=== PATIENT | female | born 1980 | race Caucasian/White ===

== ENCOUNTER 2016-06-15 20:04 | Emergency (ER) | payer OTHER ==
--- NOTE | 2016-06-15 20:18 | PDOC ---
[phone] my direct supervision Ancillary studies reviewed I agree with plan as outlined by the Advanced Practice Provider DASH Rush *DC/Admit/Observation/Transfer Diagnosis at time of Disposition: Remove/insert IUD - Discharge Dispostion Disposition: HOME Condition at time of disposition: Improved - Referrals Referrals: Cherie Levine MD [Staff Physician] - - Patient Instructions Printed Discharge Instructions: DI for Intrauterine Device Removal Additional Instructions: Follow up with your charging manipulator or the listed on your discharge. Return to the ER for any concerns
[2016-06-15 20:20] VITALS: BP 124/78; PULSE 81; TEMP 97.5; BMI 27.3
--- NOTE | 2016-06-15 20:29 | PDOC ---
History of Present Illness - General Chief Complaint: Foreign Body (FB) Stated Complaint: IUD PROBLEM Time Seen by Provider: 06/15/16 20:09 History Source: Patient Exam Limitations: No Limitations - History of Present Illness Timing/Duration: 24 hours Past History - Travel Traveled outside of the country in the last 30 days: No Close contact w/someone who was outside of country & ill: No - Past Medical History Allergies/Adverse Reactions: Allergies Allergy/AdvReac Type Severity Reaction Status Date / Time No Known Allergies Allergy Verified 06/15/16 20:18 Home Medications: Ambulatory Orders Magnesium 400 mg PO ASDIR 06/15/16 Other medical history: migraines - Reproductive History (#): 1 Para: 0 - Psycho/Social/Smoking Cessation Hx Anxiety: No Suicidal Ideation: No Smoking Status: No Smoking History: Never smoked Number of Cigarettes Smoked Daily: 0 Hx Alcohol Use: No Substance Use Type: None Review of Systems - Review of Systems Able to Perform ROS?: Yes Comments:: 06/15/16 20:29 CONSTITUTIONAL: Absent: fever, chills, diaphoresis, generalized weakness, malaise, loss of appetite HEENT: Absent: rhinorrhea, nasal congestion, throat pain, throat swelling, difficulty swallowing, mouth swelling, ear pain, eye pain, visual Changes CARDIOVASCULAR: Absent: chest pain, loss of consciousness, palpitations, irregular heart rate, peripheral edema RESPIRATORY: Absent: cough, shortness of breath, dyspnea with exertion, orthopnea, wheezing, stridor, hemoptysis GASTROINTESTINAL: Absent: abdominal pain, abdominal distension, nausea, vomiting, diarrhea, constipation, melena, hematochezia GENITOURINARY: Absent: dysuria, frequency, urgency, hesitancy, hematuria, flank pain, genital pain MUSCULOSKELETAL: Absent: myalgia, arthralgia, joint swelling SKIN: Absent: rash, itching, pallor HEMATOLOGIC/IMMUNOLOGIC: Absent: easy bleeding, easy bruising, lymphadenopathy, frequent infections ENDOCRINE: Absent: unexplained weight gain, unexplained weight loss, heat intolerance, cold intolerance NEUROLOGIC: Absent: headache, focal weakness or paresthesias, dizziness, unsteady gait, seizure, mental status changes, bladder or bowel incontinence PSYCHIATRIC: Absent: anxiety, depression, suicidal or homicidal ideation, hallucinations. Is the patient limited Croatian proficient: No *Physical Exam - Vital Signs Last Vital Signs Temp Pulse Resp BP Pulse Ox 97.5 F L 81 18 124/78 100 06/15/16 20:16 06/15/16 20:16 06/15/16 20:16 06/15/16 20:16 06/15/16 20:16 - Physical Exam Comments: 06/15/16 20:29 GENERAL: Well developed, well nourished. Awake and alert. No acute distress. HEENT: Normocephalic, atraumatic. PERRLA, EOMI. No conjunctival pallor. Sclera are non- icteric. Moist mucous membranes. Oropharynx is clear. NECK: Supple. Full ROM. No JVD. Carotid pulses 2+ and symmetric, without bruits. No thyromegaly. No lymphadenopathy. CARDIOVASCULAR: Regular rate and rhythm. No murmurs, rubs, or gallops. Distal pulses are 2+ and symmetric. PULMONARY: No evidence of respiratory distress. Lungs clear to auscultation bilaterally. No wheezing, rales or rhonchi. ABDOMINAL: Soft. Non-tender. Non-distended. No rebound or guarding. No organomegaly. Normoactive bowel sounds. MUSCULOSKELETAL Normal range of motion at all joints. No bony deformities or tenderness. No CVA tenderness. EXTREMITIES: No cyanosis. No clubbing. No edema. No calf tenderness. SKIN: Warm and dry. Normal capillary refill. No rashes. No jaundice. NEUROLOGICAL: Alert, awake, appropriate. Cranial nerves 2-12 intact. No deficits to light touch and temperature in face, upper extremities and lower extremities. No motor deficits in the in face, upper extremities and lower extremities. Normoreflexic in the upper and lower extremities. Normal speech. Toes are down- going bilaterally. Gait is normal without ataxia. PSYCHIATRIC: Cooperative. Good eye contact. Appropriate mood and affect. *DC/Admit/Observation/Transfer Diagnosis at time of Disposition: Remove/insert IUD - Discharge Dispostion Disposition: HOME Condition at time of disposition: Improved - Referrals Referrals: Cherie Levine MD [Staff Physician] - - Patient Instructions Printed Discharge Instructions: DI for Intrauterine Device Removal Additional Instructions: Follow up with your seat mender or the listed on your discharge. Return to the ER for any concerns Progress Note - Progress Note Progress Note: 36-year-old female presents to the emergency department requesting for her IUD to be removed. Patient states her IUD was placed by a seat mender just at [facility] 4 months ago. Patient states after taking a bath last evening , she believes her IUD is not in place. Patient denies any abdominal pains, flank pains, urinary symptoms: Frequency/urgency/hesitancy, fever, chills, nausea/vomiting.
== END 2016-06-15 21:07 | disposition home or self-care (01) ==
LOC: JER 20:04
DX: Z30.432 Encounter for removal of intrauterine contraceptive device (principal)
CPT/HCPCS: 99282-25

== ENCOUNTER 2016-12-21 20:32 | Emergency (ER) | payer OTHER ==
[2016-12-21 20:59] VITALS: BP 117/56; PULSE 89; TEMP 98; BMI 27.3
== END 2016-12-21 22:30 | disposition left against medical advice (07) ==
LOC: JERFT 20:32
DX: Z53.21 Procedure and treatment not carried out due to patient leaving prior to being seen by health care provider (principal)
CPT/HCPCS: 99281-25

== ENCOUNTER 2017-04-27 12:22 | Emergency (ER) | payer OTHER ==
[2017-04-27 12:28] VITALS: BP 120/67; PULSE 97; TEMP 98.2; BMI 28.4
[2017-04-27] MEDS ORDERED: KETOROLAC TROMETHAMINE 60 MG/2 ML VIAL IM ONE (13:01)
[2017-04-27] MEDS ORDERED: KETOROLAC TROMETHAMINE 60 MG/2 ML VIAL ONE (13:04)
--- NOTE | 2017-04-27 13:16 | PDOC ---
History of Present Illness - General Chief Complaint: Back Pain Stated Complaint: BACK PROBLEM Time Seen by Provider: 04/27/17 12:35 History Source: Patient Exam Limitations: No Limitations - History of Present Illness Initial Comments: 04/27/17 13:05 CHIEF COMPLAINT: [Lower back pain] HISTORY OF PRESENT ILLNESS:[ 37]-year-old [female],[history of spinal hematoma following an epidural with blood patch placement, presents with generalized lower back pain. Patient has been taking Motrin and Tylenol without resolve. Has this pain intermittent, is requesting Medrol Dosepak, pain is unchanged , Nonradiating pain, no neurosensory deficits, no bowel or bladder difficulty incontinence or urinary retention, no saddle anesthesia, no footdrop. No history of IVDU or history of cancer. ] REVIEW OF SYSTEMS: GENERAL: Afebrile, denies any weakness RESPIRATORY: No cough, wheezing, or hemoptysis. CARDIAC: No chest pain or shortness of breath MUSCULOSKELETAL: Pain to generalized lower back. No point tenderness. SKIN : No erythema, no bruising, no deformity. GI/: Denies any abdominal pain, no urinary difficulty, incontinence or urinary retention. RECTAL: Denies any difficulty this A.m. NEUROLOGICAL: Denies any numbness or tingling. No neurosensory deficits. PHYSICAL EXAM: GENERAL: The patient is awake, alert, and fully oriented, in no acute distress. RESPIRATORY: Lungs clear bilaterally, no rhonchi wheezes or crackles CARDIAC: S1-S2 audible, no murmur rub or gallop MUSCULOSKELETAL: Pain to generalized lower back, nonradiating, no tingling or sensory deficit. Less than 2 second cap refill, +4 popliteal and pedal pulses. GI/: Abdomen soft, nontender, nondistended. No rebound tenderness. No masses palpable. MUSCULOSKELETAL: No spinal point tenderness. Bilateral lower paraspinal pain. Normal reflexive and no deficits to sensation or strength. RECTAL: [Normal Rectal Tone]. [Guaiac negative] SKIN: Warm, Dry, normal turgor, no erythema, no edema no bruising. Past History - Past Medical History Allergies/Adverse Reactions: Allergies Allergy/AdvReac Type Severity Reaction Status Date / Time No Known Allergies Allergy Verified 06/15/16 20:18 Home Medications: Ambulatory Orders Cyclobenzaprine HCl [Flexeril 10 mg] 10 mg PO BID PRN #20 tablet MDD 2 04/27/17 Methylprednisolone [Medrol Dose Taz] 4 mg PO ASDIR #21 tablet 04/27/17 COPD: No DVT: No - Reproductive History (#): 1 Para: 0 - Suicide/Smoking/Psychosocial Hx Smoking Status: No Smoking History: Never smoked Have you smoked in the past 12 months: No Number of Cigarettes Smoked Daily: 0 Hx Alcohol Use: No Drug/Substance Use Hx: No Substance Use Type: None *Physical Exam - Vital Signs Last Vital Signs Temp Pulse Resp BP Pulse Ox 98.2 F 97 H 20 120/67 100 04/27/17 12:24 04/27/17 12:24 04/27/17 12:24 04/27/17 12:24 04/27/17 12:24 Medical Decision Making - Medical Decision Making 04/27/17 13:16 A/P: Patient here for evaluation of lower back pain, chronic. No change from previous pain, no neurological deficits. Is requesting Medrol Dosepak. Patient reports that she usually goes to the neurologist however they do not take her insurance anymore and needs a referral. Toradol 60 mg IM 1 given will DC patient home on Medrol Dosepak, Flexeril, follow-up with neurology I discussed the physical exam findings, ancillary test results and final diagnoses with the patient. I answered all of the patient's questions. The patient was satisfied with the care received and felt comfortable with the discharge plan and treatment plan. The patient will call to arrange follow-up and will return to the Emergency Department with any new, persistent or worsening symptoms. 04/27/17 16:25 *DC/Admit/Observation/Transfer Diagnosis at time of Disposition: Lower back pain Qualifiers: Chronicity: acute Back pain laterality: bilateral Sciatica presence: without sciatica Qualified Code(s): M54.5 - Low back pain - Discharge Dispostion Disposition: HOME Condition at time of disposition: Good Admit: No - Prescriptions Prescriptions: Cyclobenzaprine HCl [Flexeril 10 mg] 10 mg PO BID PRN #20 tablet MDD 2 PRN Reason: Pain Methylprednisolone [Medrol Dose Taz] 4 mg PO ASDIR #21 tablet - Referrals Referrals: Dontrell Hernandez MD [Staff Physician] - Scottie Myers MD [Staff Physician] - - Patient Instructions Printed Discharge Instructions: DI for Low Back Pain Additional Instructions: 1. Please return to the emergency department with any numbness, tingling, weakness, numbness or tingling to groin or legs, or loss of bowel or bladder function. 2. Use pain medication as ordered. 3. Please is to followup in the office of Dr. Hernandez for evaluation within a week if no improvement. 4. Ice or heat 5. Refrain from lifting anything above 10 pounds, until pain resolved. - Post Discharge Activity
== END 2017-04-27 13:25 | disposition home or self-care (01) ==
LOC: JERFT 12:22
PROC: 3E0233Z Introduction of Anti-inflammatory into Muscle, Percutaneous Approach (ICD-10-PCS; principal; 2017-04-27)
DX: M54.5 Low back pain (principal)
CPT/HCPCS: 96372; 99281-25

== ENCOUNTER 2017-09-19 14:41 | Emergency (ER) | payer OTHER ==
[2017-09-19 14:46] VITALS: BP 113/69; PULSE 76; TEMP 98.5; BMI 27.3
--- NOTE | 2017-09-19 15:22 | PDOC ---
History of Present Illness - General History Source: Patient Exam Limitations: No Limitations - History of Present Illness Initial Comments: 09/19/17 16:18 The patient is a 37 year old female with no past medical history who presents to the emergency department for evaluation of epigastric pain. The patient reports intermittent episodes of severe epigastric pain with no radiation. She describes the pain as cramping and notes it is exacerbated with eating. She reports associated symptoms of nausea without vomiting and diarrhea. The patient reports decreased appetite secondary to her urge to vomit. She reports a 20 day history of diarrhea, producing bowel movements in the morning about every 3 hours. She reports severe pain upon producing stool. The patient denies previous history of epigastric pain. The patient is currently fasting for ada and states she has been eating at 8pm. Of note, the patient notes she has lost weight (unknown number) due to most of her clothes fitting loosely. The patients LMP is 09/06/17. The patient denies chest pain, shortness of breath, headache, and dizziness. Denies fevers, chills, constipation, dysuria, frequency, urgency, and hematuria. Allergies: NKA Social history: No reported cigarette, alcohol, or drug use. PCP: Dr. Satish Weeks ([phone]) <Kelly Eldridge - Last Filed: 09/19/17 16:18> <Jazzy Calvo - Last Filed: 09/19/17 19:22> - General Chief Complaint: Pain, Acute Stated Complaint: ABD PAIN Time Seen by Provider: 09/19/17 15:21 Past History <Kelly Eldridge - Last Filed: 09/19/17 16:18> - Past Medical History COPD: No DVT: No - Reproductive History (#): 1 Para: 0 - Suicide/Smoking/Psychosocial Hx Smoking Status: No Smoking History: Never smoked Have you smoked in the past 12 months: No Number of Cigarettes Smoked Daily: 0 Information on smoking cessation initiated: No Hx Alcohol Use: No Drug/Substance Use Hx: No Substance Use Type: None <Jazzy Calvo - Last Filed: 09/19/17 19:22> - Past Medical History Allergies/Adverse Reactions: Allergies Allergy/AdvReac Type Severity Reaction Status Date / Time No Known Allergies Allergy Verified 09/19/17 14:44 Home Medications: Ambulatory Orders NK [No Known Home Medication] 09/19/17 Review of Systems - Review of Systems Able to Perform ROS?: Yes Comments:: GENERAL/CONSTITUTIONAL: No fever or chills. No weakness. HEAD, EYES, EARS, NOSE AND THROAT: No change in vision. No ear pain or discharge. No sore throat. CARDIOVASCULAR: No chest pain or shortness of breath. RESPIRATORY: No cough, wheezing, or hemoptysis. GASTROINTESTINAL: (+)Nausea. (+)Diarrhea. No vomiting or constipation. GENITOURINARY: No dysuria, frequency, or change in urination. MUSCULOSKELETAL: (+)Epigastric pain. No joint pain. No neck or back pain. SKIN: No rash NEUROLOGIC: No headache, vertigo, loss of consciousness, or change in strength/ sensation. ENDOCRINE: No increased thirst. No abnormal weight change. HEMATOLOGIC/LYMPHATIC: No anemia, easy bleeding, or history of blood clots. ALLERGIC/IMMUNOLOGIC: No hives or skin allergy. <Kelly Eldridge - Last Filed: 09/19/17 16:18> *Physical Exam - Vital Signs Last Vital Signs Temp Pulse Resp BP Pulse Ox 98.5 F 76 18 113/69 100 09/19/17 14:44 09/19/17 14:44 09/19/17 14:44 09/19/17 14:44 09/19/17 14:44 - Physical Exam Comments: GENERAL: Awake, alert, and fully oriented, in no acute distress HEAD: No signs of trauma EYES: PERRLA, EOMI, sclera anicteric, conjunctiva clear ENT: Auricles normal inspection, hearing grossly normal, nares patent. NECK: Normal ROM, supple. LUNGS: Breath sounds equal, clear to auscultation bilaterally. No wheezes, and no crackles HEART: Regular rate and rhythm, normal S1 and S2, no murmurs, rubs or gallops ABDOMEN: Soft, nontender, normoactive bowel sounds. No guarding, no rebound. No masses EXTREMITIES: Normal range of motion, no edema. No clubbing or cyanosis. No cords, erythema, or tenderness NEUROLOGICAL: Cranial nerves II through XII grossly intact. Normal speech, normal gait. SKIN: Warm, Dry, normal turgor, no rashes or lesions noted. <Kelly Eldridge - Last Filed: 09/19/17 16:18> - Vital Signs Last Vital Signs Temp Pulse Resp BP Pulse Ox 98.5 F 76 18 113/69 100 09/19/17 14:44 09/19/17 14:44 09/19/17 14:44 09/19/17 14:44 09/19/17 14:44 <Jazzy Calvo - Last Filed: 09/19/17 19:22> ED Treatment Course - LABORATORY CBC & Chemistry Diagram: 09/19/17 15:18 09/19/17 15:19 - ADDITIONAL ORDERS Additional order review: Laboratory Results 09/19/17 15:19 Sodium 140 Potassium 4.4 Chloride 107 09/19/17 15:18 RBC 5.05 MCV 82.1 MCHC 33.0 RDW 14.5 D MPV 9.1 Neutrophils % 54.6 Lymphocytes % 34.7 Monocytes % 8.4 Eosinophils % 1.7 Basophils % 0.6 <Kelly Eldridge - Last Filed: 09/19/17 16:18> - LABORATORY CBC & Chemistry Diagram: 09/19/17 15:18 09/19/17 15:19 <Jazzy Calvo - Last Filed: 09/19/17 19:22> Medical Decision Making - Medical Decision Making 09/19/17 19:16 PT presents to the ED complaining of diffuse abdominal pain that have been persistent for 20 days. Abdomen is non tender. Differential included irritable bowel disease, UTI, less likely ectopic , PUD. Labs are within normal limits and UA is negative. Given that the patient has been having symptoms for 20 days, I feel that she needs a referral to gastroeneterology. Will refer to medical clinic and gastroenterology. <Jazzy Calvo - Last Filed: 09/19/17 19:22> *DC/Admit/Observation/Transfer - Attestations Scribe Attestion: Documentation prepared by Kelly Eldridge, acting as er medical technician for Jazzy Calvo MD. <Kelly Eldridge - Last Filed: 09/19/17 16:18> - Discharge Dispostion Decision to Admit order: No <Jazzy Calvo - Last Filed: 09/19/17 19:22> Diagnosis at time of Disposition: Abdominal pain Qualifiers: Abdominal location: generalized Qualified Code(s): R10.84 - Generalized abdominal pain - Discharge Dispostion Disposition: HOME Condition at time of disposition: Good - Referrals Referrals: Shun Winters MD [Staff Physician] - Satish Weeks MD [Primary Care Provider] - Fahad Walden MD [Staff Physician] - - Patient Instructions Printed Discharge Instructions: DI for Abdominal Pain-Adult Additional Instructions: return to the ED for severe pain, pain with fever, nausea and vomiting, bloody vomit and diarrhea. We did not find the cause of your abdominal pain today, so you should be sure to follow up with a primary care doctor within 3 days and to return to the ED for worsening symptoms. - Post Discharge Activity
[2017-09-19] MEDS ORDERED: ONDANSETRON 4 MG/2 ML VIAL ONE (15:38)
[2017-09-19] MEDS ORDERED: FAMOTIDINE 20 MG/50 ML IVPB 20 MG/50 ML MG IVPB ONE ×2 (15:38→18:27)
[2017-09-19 15:42] LABS: BASO % 0.6 % (0-2.0); EOS % 1.7 % (0-4.5); HEMATOCRIT 41.5 % (32.4-45.2); HEMOGLOBIN 13.7 GM/dL (10.7-15.3); LYMPH % 34.7 % (8-40); MCH 27.1 pg (25.7-33.7); MEAN CELL VOLUME 82.1 fl (80-96); MEAN PLT VOLUME 9.1 fl (7.5-11.1); MONO % 8.4 % (3.8-10.2); NEUT % 54.6 % (42.8-82.8); PLATELET COUNT 283 K/MM3 (134-434); RBC 5.05 M/mm3 (3.60-5.2); RDW 14.5 % (11.6-15.6); WHITE BLOOD COUNT 5.9 K/mm3 (4.0-10.0)
[2017-09-19 16:05] LABS: CHLORIDE 107 mmol/L (98-107); POTASSIUM 4.4 mmol/L (3.5-5.1); SODIUM 140 mmol/L (136-145)
[2017-09-19 16:11] LABS: ALBUMIN 4.1 g/dl (3.4-5.0); ANION GAP 6 (8-16); BLOOD UREA NITROGEN 8 mg/dL (7-18); CO2 27 mmol/L (21-32); CREATININE 0.5 mg/dL (0.55-1.02); GLUCOSE,RANDOM 90 mg/dL (74-106); LIPASE 108 U/L (73-393); SGPT/ALT 22 U/L (12-78)
[2017-09-19 16:22] LABS: ALK PHOS 55 U/L (45-117); BILIRUBIN,TOTAL 0.4 mg/dL (0.2-1.0); SGOT/AST 10 U/L (15-37); TOT PROT 7.8 g/dl (6.4-8.2)
[2017-09-19 18:18] LABS: URINE APPEARANCE SLCLOUDY; URINE BILIRUBIN NEGATIVE (<2.0 mg/dL); URINE BLOOD 1+ (NEGATIVE); URINE COLOR DKYELLOW; URINE GLUCOSE (UA) NEGATIVE (NEGATIVE); URINE KETONE TRACE (NEGATIVE); URINE LEUK ESTERASE NEGATIVE (NEGATIVE); URINE NITRITE NEGATIVE (NEGATIVE); URINE UROBILINOGEN NEGATIVE mg/dL (0.2-1.0)
[2017-09-19 18:26] LABS: URINE PROTEIN 1+ (NEGATIVE)
[2017-09-19] MEDS ORDERED: ONDANSETRON 4 MG/2 ML VIAL IVPUSH PRN (18:27)
[2017-09-19] MEDS ORDERED: ACETAMINOPHEN 1000 MG/100 ML VIAL (NON FORMULARY) IVPB ONE (18:28)
[2017-09-19] MEDS ORDERED: ACETAMINOPHEN INJECTION 100 ML IVPB ONE (18:28)
[2017-09-19 18:29] LABS: EPI CELLS MODERATE /HPF (FEW); URINE HYALINE CAST 8 /lpf; URINE MUCUS MANY
== END 2017-09-19 19:15 | disposition home or self-care (01) ==
LOC: JER 14:41
PROC: 3E033GC Introduction of Other Therapeutic Substance into Peripheral Vein, Percutaneous Approach (ICD-10-PCS; principal; 2017-09-19)
PROC: 3E033NZ Introduction of Analgesics, Hypnotics, Sedatives into Peripheral Vein, Percutaneous Approach (ICD-10-PCS; 2017-09-19)
DX: R10.84 Generalized abdominal pain (principal)
CPT/HCPCS: 36415; 80053; 81003; 81015; 83690; 84703; 85025; 99283-25; J0131